=== PATIENT | female | born 1965 | race American Indian/Alaskan Native ===

== ENCOUNTER 2018-02-24 16:34 | Emergency (ER) | payer OTHER, BC ==
[2018-02-24 16:44] VITALS: BMI 32.1
[2018-02-24 16:48] VITALS: BP 153/80; PULSE 92; RESP 16; TEMP 98.4; O2SAT 100
[2018-02-24] MEDS ORDERED: Lidocaine 5% Patch TD STA (17:08)
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
[2018-02-24] MEDS ORDERED: Lidocaine 5% Patch TD ONE (17:22)
== END 2018-02-24 18:31 | disposition home or self-care (01) ==
LOC: C.ER 16:34
DX: M54.6 Pain in thoracic spine (principal); M54.40 Lumbago with sciatica, unspecified side; I10 Essential (primary) hypertension
CPT/HCPCS: 96372; 99284; J1885